=== PATIENT | female | born 1980 | race Caucasian/White ===

== ENCOUNTER → 2023-12-19 | Outpatient (CLI) | payer OTHER | END | disposition home or self-care (01) | LOC: LAB 17:11 | DX: O20.9 Hemorrhage in early pregnancy, unspecified (principal) ==

== ENCOUNTER 2023-12-21 08:47 | Emergency (ER) | payer OTHER | END 2023-12-21 10:54 | disposition home or self-care (01) | LOC: ED 08:47 | DX: O03.9 Complete or unspecified spontaneous abortion without complication (principal) ==